=== PATIENT | female | born 1970 | race Asian ===

== ENCOUNTER 2017-04-13 15:15 | Emergency (ER) | payer OTHER ==
--- NOTE | 2017-04-13 15:24 | PDOC ---
History of Present Illness - General Chief Complaint: Lightheaded Stated Complaint: DIZZINESS, VOMITING, ABD PAIN Time Seen by Provider: 04/13/17 15:19 History Source: Patient Exam Limitations: Language Barrier, Other (Son Interprets for her.) - History of Present Illness Initial Comments: 04/13/17 15:20 46 yo healthy female with htn taking amlodipine has not felt well since and developed fever and vomiting yesterday and has not been able to hold down fluids. Here today with her family. Timing/Duration: getting worse Severity: mild Modifying Factors: improves with: other (Advil helps for the fever) Associated Symptoms: reports: fever/chills, loss of appetite Past History - Past Medical History Allergies/Adverse Reactions: Allergies Allergy/AdvReac Type Severity Reaction Status Date / Time No Known Allergies Allergy Verified 04/13/17 15:19 Home Medications: Ambulatory Orders Amlodipine Besylate 5 mg PO DAILY 04/13/17 Ondansetron [Zofran *Odt*] 8 mg SL TID #30 od.tablet 04/13/17 HTN: Yes - Surgical History Comments:: 04/13/17 15:23 [place] [facility] Review of Systems - Review of Systems Able to Perform ROS?: Yes Is the patient limited American proficient: Yes Constitutional: Yes: See HPI HEENTM: Yes: Symptoms Reported, Other (Longstanding Earache ) Respiratory: No: Symptoms reported Cardiac (ROS): No: Symptoms Reported ABD/GI: No: Symptoms Reported : Yes: See HPI Musculoskeletal: No: Symptoms Reported Integumentary: No: Symptoms Reported Neurological: No: Symptoms reported Psychiatric: No: Anxiety, Depression Endocrine: No: Symptoms Reported Hematologic/Lymphatic: No: Symptoms Reported All Other Systems: Reviewed and Negative *Physical Exam - Physical Exam General Appearance: No: Severe Distress HEENT: positive: EOMI, ANA, Normal ENT Inspection Neck: positive: Supple. negative: Tender Respiratory/Chest: positive: Lungs Clear, Normal Breath Sounds. negative: Chest Tender Cardiovascular: positive: Regular Rhythm, Regular Rate. negative: Murmur Gastrointestinal/Abdominal: positive: Normal Bowel Sounds, Flat, Soft Rectal Exam: positive: deferred Lymphatic: negative: Adenopathy, Tenderness Musculoskeletal: positive: Normal Inspection. 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 NML intact, Fully Oriented, Alert, Normal Mood/ Affect ED Treatment Course - LABORATORY CBC & Chemistry Diagram: 04/13/17 15:40 04/13/17 15:40 Medical Decision Making - Medical Decision Making 04/13/17 16:47 EKG@15:33 NORM[address]IN[address] RHYTHM NO [address]-T CHANGES NO ECTOPY NORMAL AXIS NORMAL INTERVALS *DC/Admit/Observation/Transfer Diagnosis at time of Disposition: Gastroenteritis - Discharge Dispostion Disposition: HOME Condition at time of disposition: Improved - Prescriptions Prescriptions: Ondansetron [Zofran *Odt*] 8 mg SL TID #30 od.tablet - Patient Instructions Printed Discharge Instructions: DI for Vomiting -- Adult, DI for Nausea -- Adult Additional Instructions: Mrs Hazel- Use tylenol to control your fever, use Zofran to control your nausea. Drink plenty of fluids, [water, gatoraide, tea, Chicken or Vegetable Broth] Return to us if worse or new symptoms occur. Best- Dr. Nino Thurman
[2017-04-13] MEDS ORDERED: METOCLOPRAMIDE HCL INJECTION 10 MG/2 ML VIAL IVPB ONE (15:27)
[2017-04-13] MEDS ORDERED: ONDANSETRON 4 MG/2 ML VIAL IVPB ONE (15:27)
[2017-04-13] MEDS ORDERED: SODIUM CHLORIDE 1,000 ML IV STA (15:27)
[2017-04-13 15:28] VITALS: TEMP 98.8; BMI 33.6
[2017-04-13] MEDS ORDERED: ONDANSETRON 4 MG/2 ML VIAL ONE (15:32)
[2017-04-13 15:48] LABS: PH,URINE 8.5 (4.5-8); URINE APPEARANCE Clear; URINE BILIRUBIN Negative (NEGATIVE); URINE BLOOD Trace-intact (NEGATIVE); URINE GLUCOSE (UA) Negative (NEGATIVE); URINE KETONE Negative (NEGATIVE); URINE NITRITE Negative (NEGATIVE); URINE PROTEIN Trace (NEGATIVE); URINE UROBILINOGEN 4.0 E.U/dl (0.2-1.0)
[2017-04-13 16:05] LABS: URINE COLOR YELLOW; URINE LEUK ESTERASE 1+ (NEGATIVE)
[2017-04-13 16:13] LABS: BASOPHIL 0.6 % (0-2.0); EOSINOPHIL 2.6 % (0-4.5); MCH 24.1 pg (25.7-33.7); MEAN PLT VOLUME 9.3 fl (7.5-11.1); NEUTROPHILS 61.1 % (42.8-82.8); PLATELET COUNT 305 K/MM3 (134-434); RDW 13.7 % (11.6-15.6); WHITE BLOOD COUNT 9.3 K/mm3 (4.0-10.8)
[2017-04-13 16:25] LABS: ALBUMIN 4.3 g/dl (3.5-5.0); ALK PHOS 59 U/L (32-92); ANION GAP 10 (8-16); BILIRUBIN,TOTAL 0.9 mg/dl (0.2-1.0); CALCIUM 8.7 mg/dl (8.4-10.2); CO2 24 mmol/L (22-28); COCKROFT - GAULT 191.2755; CPK(DFH) 70 IU/L (26-140); CREATININE 0.5 mg/dl (0.6-1.3); GLUCOSE,RANDOM 93 mg/dl (74-106); SGOT/AST 22 U/L (10-42); SGPT/ALT 23 U/L (10-40); TOT PROT 7.9 g/dl (6.4-8.3)
[2017-04-13 16:38] LABS: TROPONIN I (DFP) < 0.03 ng/ml (0.03-0.50)
[2017-04-13 16:59] VITALS: BP 121/58; PULSE 87
[2017-04-13 17:02] LABS: URINE BACTERIA FEW /hpf (NEGATIVE)
--- NOTE | 2017-04-14 13:03 | EKG ---
Test Reason : Blood Pressure : / mmHG Vent. Rate : 090 BPM Atrial Rate : 090 BPM P-R Int : 166 ms QRS Dur : 080 ms QT Int : 364 ms P-R-T Axes : 062 029 022 degrees QTc Int : 445 ms NORMAL SINUS RHYTHM POSSIBLE LEFT ATRIAL ENLARGEMENT BORDERLINE ECG NO PREVIOUS ECGS AVAILABLE Confirmed by MUKESH SOLITARIO MD ([id number] on 04/14/2017 1:03:02 PM Referred By: BARTOLOME HENRIQUEZ Confirmed By:MUKESH SOLITARIO MD
--- NOTE | 2017-04-30 15:20 | PDOC ---
Patient Follow-up (Call Back) - Post ED Follow - Up Condition at time of discharge: Improved Disposition at time of original discharge: HOME - Disposition Additional Instructions/Notes: Received a phone call from the patient while on duty in the ER. He states that he was called about an abnormal urine test result today. I have been in the ER since 7 AM and was not made aware of any abnormal urinalyses or cultures. However, I accessed the chart from April 13 and found that the urine culture showed greater than 100,000 colonies of Escherichia coli. The patient denies having any symptoms of urinary tract infection at that time, and his symptoms of lower abdominal pain have completely resolved and he is feeling fine now. The most likely reason for the positive culture is probably contamination. The patient was instructed to return to the ER today and to have a repeat urinalysis and urine culture. He declined, stating he preferred to see his primary physician. I tried to explain that a urine infection could be potentially serious and that he should have a repeat urinalysis and urine culture as soon as possible. He seemed to understand and agree. I told him that his primary physician could obtain the culture results by calling the ER and that we would fax them to his office. The patient seemed to understand and agree and promise to follow-up with his primary physician within the next few days.
== END 2017-04-13 17:30 | disposition home or self-care (01) ==
LOC: FER 15:15
PROC: 3E033GC Introduction of Other Therapeutic Substance into Peripheral Vein, Percutaneous Approach (ICD-10-PCS; principal; 2017-04-13)
PROC: 3E0337Z Introduction of Electrolytic and Water Balance Substance into Peripheral Vein, Percutaneous Approach (ICD-10-PCS; 2017-04-13)
DX: K52.9 Noninfective gastroenteritis and colitis, unspecified (principal); I10 Essential (primary) hypertension
CPT/HCPCS: 36415; 74020-TC; 80053; 81003; 81015; 82550; 83690; 84484; 84703; 85025; 87086; 87186; 93005; 99285-25